=== PATIENT | male | born 1965 | race African-American/Black ===

== ENCOUNTER 2022-07-01 13:09 | Emergency (ER) | payer MEDICARE, MEDICAID | END 2022-07-01 14:35 | disposition home or self-care (01) | LOC: CSHERS 13:09 | DX: T81.40XA Infection following a procedure, unspecified, initial encounter (principal); L03.114 Cellulitis of left upper limb; I11.0 Hypertensive heart disease with heart failure; I50.9 Heart failure, unspecified; F17.210 Nicotine dependence, cigarettes, uncomplicated | CPT/HCPCS: 99283 ==